=== PATIENT | female | born 1950 | race Caucasian/White ===

== ENCOUNTER → 2017-08-24 13:28 | Outpatient (CLI) | payer MEDICARE, OTHER, SELFPAY ==
--- NOTE | 2017-08-24 13:39 | XR_ITS ---
XR DEXA axial skeleton HISTORY: ITS.REASON: POST MENOPAUSAL ORDERING PHYSICIAN: Manny Bauer MD PATIENT AGE: 66 years COMPARISON: None FINDINGS: The BMD measured at the Right femoral neck is 0.738 g/cm squared with a T score of -2.2 . This is considered Osteopenic according to the World Health Organization criteria. Fracture risk is Moderate. Treatment is advised. The L1-L4 density has a T score of -2.0 consistent with osteopenia. IMPRESSION: Osteopenia. Moderate fracture risk. Recommend treatment. Recommend follow-up exam August 2019
--- NOTE | 2017-08-24 13:52 | XR_ITS ---
XR hip RT 2-3V w/pelvis HISTORY: ITS.REASON: KAYCE HIP PAIN ORDERING PHYSICIAN: Manny Bauer MD PATIENT AGE: 66 years COMPARISON: None FINDINGS: No fracture or dislocation is evident. No significant degenerative change. No lytic or blastic change. Unremarkable soft tissues IMPRESSION: Negative right hip
--- NOTE | 2017-08-24 13:52 | XR_ITS ---
XR hip LT 2-3V w/pelvis HISTORY: ITS.REASON: KAYCE HIP PAIN ORDERING PHYSICIAN: Manny Bauer MD PATIENT AGE: 66 years COMPARISON: None FINDINGS: No fracture or dislocation is evident. No significant degenerative change. No lytic or blastic change. Unremarkable soft tissues IMPRESSION: Negative left hip
== END ==
PROVIDERS: Family Provider Internal Medicine Adolescent Medicine; PCP Internal Medicine Adolescent Medicine; Visit Provider Internal Medicine Adolescent Medicine
DX: Z13.820 Encounter for screening for osteoporosis (principal); Z78.0 Asymptomatic menopausal state
CPT/HCPCS: 73502; 77080

== ENCOUNTER → 2018-11-16 15:26 | Outpatient (CLI) | payer MEDICARE, OTHER, SELFPAY | PROVIDERS: PCP Internal Medicine Adolescent Medicine; Visit Provider Nurse Practitioner Family | DX: R00.2 Palpitations (principal) | CPT/HCPCS: 93225; 93226 ==

== ENCOUNTER → 2018-12-14 07:47 | Outpatient (CLI) | payer MEDICARE, OTHER, SELFPAY ==
--- NOTE | 2018-12-14 08:20 | MR_ITS ---
MR angio head wo con CLINICAL INDICATION: ITS.REASON: PULSATILE TINNITUS OF LEFT EAR, BALANCE PROBLEM ORDERING PHYSICIAN: Melinda Melo APRN PATIENT AGE: 68 years Comparison: None TECHNIQUE: 3-D [id number] images obtained without contrast with multi slab MIPS reformats FINDINGS: No aneurysm, arteriovenous malformation, or major intracranial occlusive process is evident. Single shot MRV has an unremarkable appearance. IMPRESSION: Negative MRA of the brain
--- NOTE | 2018-12-14 08:20 | MR_ITS ---
MR head/brain wo/w con HISTORY: Pulsation and left inferior, off balance, headache, hearing loss ITS.REASON: PULSATILE TINNITUS OF LEFT EAR, BALANCE PROBLEM ORDERING PHYSICIAN: Melinda Melo APRN PATIENT AGE: 68 years Comparison: None TECHNIQUE: Standard multiplanar multiecho sequences are performed without and with gadolinium enhancement . FINDINGS: No midline shift, mass effect, intracranial hemorrhage, or hydrocephalus is evident. There is a small focus of increased diffusion signal noted in the right anterior occipital region involving the cortex. This measures approximately 4 mm showing decrease ADC signal consistent with a small area of cortical infarction. The cerebellopontine angles, cerebellum, midbrain, and brainstem have an unremarkable appearance. There are a few scattered is T2 white matter hyperintensities noted in the periventricular and subcortical regions consistent with ischemic gliotic change from microvascular disease. No enhancing lesions are apparent. No mastoid effusion or sinus air-fluid level. There is a small retention cyst in the lateral aspect of the left maxillary sinus at 9 mm and an additional 1 medially at 6 mm. IMPRESSION: 1. 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 2. Mild periventricular ischemic gliotic change. 3. Otherwise negative MRI of the brain without and with contrast
[2018-12-14 08:21] LABS: Blood Urea Nitrogen 12 mg/dL (7-18); Creatinine,Serum 0.63 mg/dL (0.55-1.02); Estimated Glomerular Filt Rate 93 ml/min (>60); GFR (African American) 113 ML/MIN (>60)
--- NOTE | 2018-12-14 09:17 | HMH.ITSHM ---
Current Home Medications as stated by this patient Summer Dow or union representative. [PAXIL ASA AMOXICILLIN
== END ==
PROVIDERS: Visit Provider Nurse Practitioner Family
DX: H93.A2 Pulsatile tinnitus, left ear (principal); R26.89 Other abnormalities of gait and mobility; R51 Headache; R00.2 Palpitations
CPT/HCPCS: 36415; 70544; 70553; 82565; 84520; A9576

== ENCOUNTER → 2019-01-22 10:08 | Outpatient (CLI) | payer MEDICARE, OTHER, SELFPAY ==
--- NOTE | 2019-01-22 10:11 | CA_ITS ---
[facility] RADIOLOGICAL CONSULTATION Patient Name : Summer Dow X-RAY # : [id number] Physician: SHEREEN MCCOY AGE: 68Y : 1950 00:00:00 ( F ) Exam : CA ECHO DOPPLER COMPLETE ACC # : [id number] Study Date : 01/22/2019 11:10:56 Patient Class : O FINAL REPORT CLINICAL DATA: FINDINGS: IMPRESSION: Dictated by Ritika Coburn at 01/24/2019 12:42:32 PM Transcribed by at
--- NOTE | 2019-01-22 10:33 | CA_ITS ---
APPROVED REPORT Laborer [place]: JILLIAN Laterality: Bilateral Study Quality: Good Indications: Dizziness and Vertigo, CVA/TIA: Risk Factors Hypertension: Doppler Spectral Velocity Analysis ECA (R) 89.90/11.90 cm/s ECA (L) 96.90/14.00 cm/s dICA (R) 100.00/31.10 cm/s dICA (L) 96.90/35.40 cm/s Leida (R) 92.30/33.60 cm/s Leida (L) 78.20/28.70 cm/s pICA (R) 73.10/29.90 cm/s pICA (L) 78.20/22.70 cm/s dCCA (R) 81.70/23.60 cm/s dCCA (L) 71.80/21.50 cm/s pCCA (R) 84.90/21.20 cm/s pCCA (L) 90.50/15.80 cm/s Vert (R) 35.10/8.48 cm/s Vert (L) 52.10/14.70 cm/s ICA/CCA 1.22 ICA/CCA 1.35 Findings Duplex evaluation demonstrates stenosis of the right proximal internal carotid artery <20% with PSV <140 cm/sec, EDV <100 cm/sec, and IC/CC Ratio <4.0.Duplex evaluation demonstrates stenosis of the left proximal internal carotid artery <20% with PSV <140 cm/sec, EDV <100 cm/sec, and IC/CC Ratio <4.0. Antegrade flow seen bilateral vertebral arteries. Conclusion Duplex evaluation demonstrates stenosis of the right proximal internal carotid artery <20% with PSV <140 cm/sec, EDV <100 cm/sec, and IC/CC Ratio <4.0.Duplex evaluation demonstrates stenosis of the left proximal internal carotid artery <20% with PSV <140 cm/sec, EDV <100 cm/sec, and IC/CC Ratio <4.0. Antegrade flow seen bilateral vertebral arteries. Electronically signed by : Sourav Garcia MD 01/23/2019 09:35:14
== END ==
PROVIDERS: PCP Internal Medicine Adolescent Medicine; Visit Provider Internal Medicine Adolescent Medicine
DX: I63.89 Other cerebral infarction
CPT/HCPCS: 93306; 93880

== ENCOUNTER → 2019-01-26 10:53 | Outpatient (CLI) | payer MEDICARE, OTHER, SELFPAY | PROVIDERS: PCP Internal Medicine Adolescent Medicine; Visit Provider Internal Medicine Adolescent Medicine | DX: R00.2 Palpitations (principal); I63.9 Cerebral infarction, unspecified | CPT/HCPCS: 93270 ==

== ENCOUNTER → 2019-04-10 18:43 | Outpatient (CLI) | payer MEDICARE, OTHER, SELFPAY | PROVIDERS: PCP Internal Medicine Adolescent Medicine; Visit Provider Internal Medicine Adolescent Medicine | DX: G47.33 Obstructive sleep apnea (adult) (pediatric) (principal); I10 Essential (primary) hypertension | CPT/HCPCS: 95810 ==

== ENCOUNTER → 2019-04-18 07:05 | Outpatient (CLI) | payer MEDICARE, OTHER, SELFPAY ==
[2019-04-18 14:19] LABS: Basophils % 0.4 % (0.1-2.0); Eosinophils # 0.2 K/mm3 (0.0-0.4); Eosinophils % 3.2 % (0.1-12.0); Hematocrit 35.6 % (37.0-47.0); Hemoglobin 11.9 g/dL (12.2-16.2); Lymphocytes # 1.6 K/mm3 (0.7-4.5); Lymphocytes % 25.2 % (10-50); Mean Corpuscular HGB Conc 33.3 g/dL (31.8-35.4); Mean Corpuscular Hemoglobin 30.6 pg (27.0-31.2); Mean Corpuscular Volume 91.9 fl (81-99); Mean Platelet Volume 9.1 fl (7.4-10.4); Monocytes # 0.3 K/mm3 (0.1-1.0); Monocytes % 4.1 % (1.7-9.3); Neutrophils # 4.3 K/mm3 (1.8-7.8); Neutrophils % 67.2 % (37.0-80.0); Platelet Count 206 K/mm3 (142-424); Red Blood Count 3.88 M/mm3 (4.20-5.40); Red Cell Distribution Width 12.8 % (11.5-17.5); White Blood Count 6.4 K/mm3 (4.8-10.8)
[2019-04-18 15:17] LABS: Alanine Aminotransferase 14 U/L (12-78); Albumin Level 3.8 gm/dL (3.4-5.0); Albumin/Globulin Ratio 1.2 (1.1-1.8); Alkaline Phosphatase 110 U/L (46-116); Anion Gap 12.5 mEq/L (5-15); Aspartate Amino Transferase 13 U/L (15-37); Bilirubin,Total 0.3 mg/dL (0.2-1.0); Blood Urea Nitrogen 14 mg/dL (7-18); Calcium 8.6 mg/dL (8.5-10.1); Carbon Dioxide 30 mmol/L (21.0-32.0); Chloride 104 mmol/L (98-107); Chol/HDL Ratio 2.3 (1-3.5); Cholesterol 164 mg/dL (140-200); Creatinine,Serum 0.59 mg/dL (0.55-1.02); Estimated Glomerular Filt Rate 101 ml/min (>60); GFR (African American) 122 ML/MIN (>60); Globulin 3.1 gm/dl (1.3-3.2); Glucose 103 mg/dL (74-106); HDL Cholesterol 72 mg/dL (29-89); LDL Cholesterol 83 mg/dL (0-130); Potassium 3.5 mmoL/L (3.5-5.1); Sodium 143 mmol/L (136-145); Thyroid Stimulating Hormone 2.07 uIU/ml (0.358-3.740); Total Protein,Serum 6.9 gm/dL (6.4-8.2); Triglycerides 44 mg/dL (30-200); VLDL Cholesterol 9 mg/dL (0-40)
[2019-04-18 15:46] LABS: Hemoglobin A1C 5.9 % (0.0-7.0)
[2019-04-19 13:21] LABS: Vitamin B12 550 pg/mL (232-1245)
== END ==
PROVIDERS: PCP Internal Medicine Adolescent Medicine; Visit Provider Internal Medicine Adolescent Medicine
DX: E11.9 Type 2 diabetes mellitus without complications (principal); E53.8 Deficiency of other specified B group vitamins; I48.0 Paroxysmal atrial fibrillation
CPT/HCPCS: 36415; 80053; 80061; 82607; 83036; 84443; 85025

== ENCOUNTER → 2019-07-18 09:57 | Outpatient (CLI) | payer MEDICARE, OTHER, SELFPAY ==
[2019-07-18 14:16] LABS: Basophils % 0.6 % (0.1-2.0); Eosinophils # 0.1 K/mm3 (0.0-0.4); Hematocrit 35.6 % (37.0-47.0); Hemoglobin 12.1 g/dL (12.2-16.2); Lymphocytes # 1.5 K/mm3 (0.7-4.5); Lymphocytes % 26.5 % (10-50); Mean Corpuscular HGB Conc 33.9 g/dL (31.8-35.4); Mean Corpuscular Hemoglobin 30.1 pg (27.0-31.2); Mean Corpuscular Volume 88.7 fl (81-99); Mean Platelet Volume 8.6 fl (7.4-10.4); Monocytes # 0.3 K/mm3 (0.1-1.0); Monocytes % 4.8 % (1.7-9.3); Neutrophils # 3.8 K/mm3 (1.8-7.8); Neutrophils % 66.1 % (37.0-80.0); Platelet Count 220 K/mm3 (142-424); Red Blood Count 4.01 M/mm3 (4.20-5.40); Red Cell Distribution Width 12.6 % (11.5-17.5); White Blood Count 5.8 K/mm3 (4.8-10.8)
[2019-07-18 14:21] LABS: Hemoglobin A1C 5.6 % (0.0-7.0)
[2019-07-18 15:09] LABS: Alanine Aminotransferase 21 U/L (9-52); Albumin Level 3.8 g/dL (3.4-5.0); Albumin/Globulin Ratio 1.3 (1.1-1.8); Alkaline Phosphatase 113 U/L (46-116); Anion Gap 11.8 mEq/L (5-15); Aspartate Amino Transferase 12 U/L (15-37); Bilirubin,Total 0.3 mg/dL (0.2-1.0); Blood Urea Nitrogen 11 mg/dL (7-18); Calcium 8.8 mg/dL (8.5-10.1); Carbon Dioxide 30 mmol/L (21.0-32.0); Chloride 109 mmol/L (98-107); Chol/HDL Ratio 2.4 (1-3.5); Cholesterol 143 mg/dL (140-200); Creatinine,Serum 0.62 mg/dL (0.55-1.02); Estimated Glomerular Filt Rate 95 ml/min (>60); GFR (African American) 115 ML/MIN (>60); Globulin 2.9 gm/dl (1.3-3.2); Glucose 95 mg/dL (74-106); HDL Cholesterol 59 mg/dL (29-89); LDL Cholesterol 75 mg/dL (0-130); Potassium 3.8 mmoL/L (3.5-5.1); Sodium 147 mmol/L (137-145); Total Protein,Serum 6.7 g/dL (6.4-8.2); Triglycerides 44 mg/dL (30-200); VLDL Cholesterol 9 mg/dL (0-40)
[2019-07-19 10:30] LABS: Vitamin B12 461 pg/mL (232-1245)
== END ==
PROVIDERS: Visit Provider Internal Medicine Adolescent Medicine
DX: E11.9 Type 2 diabetes mellitus without complications (principal); E53.8 Deficiency of other specified B group vitamins
CPT/HCPCS: 36415; 80053; 80061; 82607; 83036; 85025

== ENCOUNTER → 2020-01-16 08:35 | Outpatient (CLI) | payer MEDICARE, OTHER, SELFPAY ==
[2020-01-16 14:27] LABS: Chloride 104 mmol/L (98-107); Sodium 142 mmol/L (136-145)
[2020-01-16 14:30] LABS: Alanine Aminotransferase 12 U/L (12-78); Albumin Level 4.3 g/dl (3.5-5.0); Albumin/Globulin Ratio 1.6 (1.1-1.8); Alkaline Phosphatase 122 U/L (38-126); Aspartate Amino Transferase 18 U/L (14-36); Bilirubin,Total 0.5 mg/dl (0.2-1.3); Blood Urea Nitrogen 14 mg/dl (7-17); Carbon Dioxide 31 mmol/L (22.0-30.0); Cholesterol 171 mg/dl (140-200); Estimated Glomerular Filt Rate 122 ml/min (>60); GFR (African American) 147 ML/MIN (>60); Globulin 2.7 g/dL (1.3-3.2); Triglycerides 63 mg/dl (30-150); VLDL Cholesterol 13 mg/dL (0-40)
[2020-01-16 14:31] LABS: Calcium 9.5 mg/dl (8.4-10.2); Chol/HDL Ratio 2.4 (1-3.5); Glucose 94 mg/dl (74-100); HDL Cholesterol 71 mg/dl (40-60)
[2020-01-16 14:38] LABS: Basophils % 0.5 % (0.1-2.0); Eosinophils # 0.1 K/mm3 (0.0-0.4); Eosinophils % 2.1 % (0.1-12.0); Hematocrit 35.1 % (37.0-47.0); Hemoglobin 12.3 g/dL (12.2-16.2); Lymphocytes # 1.8 K/mm3 (0.7-4.5); Lymphocytes % 25.4 % (10-50); Mean Corpuscular Hemoglobin 31.2 pg (27.0-31.2); Mean Corpuscular Volume 89.2 fl (81-99); Mean Platelet Volume 9.6 fl (7.4-10.4); Monocytes # 0.3 K/mm3 (0.1-1.0); Monocytes % 4.9 % (1.7-9.3); Neutrophils # 4.7 K/mm3 (1.8-7.8); Neutrophils % 67.1 % (37.0-80.0); Platelet Count 198 K/mm3 (142-424); Red Blood Count 3.94 M/mm3 (4.20-5.40); Red Cell Distribution Width 13.1 % (11.5-17.5); White Blood Count 6.9 K/mm3 (4.8-10.8)
[2020-01-16 14:42] LABS: Direct LDL Cholesterol 76.65 mg/dL (100-129)
[2020-01-16 14:48] LABS: Triiodothryronine (T3) Uptake 30 % (23.5-40.5)
[2020-01-16 14:49] LABS: Free Thyroxine Index 2.5 ug/dL (5.93-13.13); T4 (Thyroxine) 8.3 ug/dl (5.53-11.0)
[2020-01-16 15:03] LABS: Thyroid Stimulating Hormone 1.15 uIU/mL (0.465-4.68)
[2020-01-18 14:15] LABS: Vitamin B12 426 pg/mL (232-1245)
== END ==
PROVIDERS: Visit Provider Internal Medicine Adolescent Medicine
DX: E11.9 Type 2 diabetes mellitus without complications (principal); I48.0 Paroxysmal atrial fibrillation; Z86.39 Personal history of other endocrine, nutritional and metabolic disease
CPT/HCPCS: 36415; 80053; 80061; 82607; 83036; 84436; 84443; 84479; 85025

== ENCOUNTER → 2020-01-21 08:27 | Outpatient (CLI) | payer MEDICARE, OTHER, SELFPAY ==
--- NOTE | 2020-01-21 08:32 | MR_ITS ---
PROCEDURE: MR HEAD/BRAIN WO CON CLINICAL INDICATION: OCCIPITAL HEADACHE Off balance. Sob. Hx of stroke x1yr. Not feeling good [id number]. Weakness. Headache. Hx a fib. Prior mr 12-14-18 TECHNIQUE: Routine multiplanar multi echo sequences are performed without gadolinium enhancement. FINDINGS: No midline shift, mass effect, intracranial hemorrhage, hydrocephalus, or acute infarction is evident. There are scattered periventricular and subcortical T2 white matter hyperintensities consistent with ischemic gliotic change from microvascular disease incidentally noted. These areas do not demonstrate restricted diffusion. The cerebellopontine angles, cerebellum, and brainstem have an unremarkable appearance. The pituitary, optic chiasm, corpus callosum, and craniocervical junction have an unremarkable appearance. No mastoid effusion or sinus air-fluid level. IMPRESSION: No acute intracranial findings with no significant change Dictated by: Sourav Garcia MD 01/22/2020 12:38 Sourav Garcia MD in [place] 01/22/2020 12:38
== END ==
PROVIDERS: PCP Internal Medicine Adolescent Medicine; Visit Provider Internal Medicine Adolescent Medicine
DX: I63.9 Cerebral infarction, unspecified (principal)
CPT/HCPCS: 70551

== ENCOUNTER → 2020-06-18 08:53 | Outpatient (CLI) | payer MEDICARE, OTHER, SELFPAY ==
[2020-06-18 14:32] LABS: Basophils % 0.6 % (0.1-2.0); Eosinophils # 0.2 K/mm3 (0.0-0.4); Eosinophils % 2.1 % (0.1-12.0); Hemoglobin 13.2 g/dL (12.2-16.2); Lymphocytes # 1.8 K/mm3 (0.7-4.5); Lymphocytes % 25.1 % (10-50); Mean Corpuscular HGB Conc 33.9 g/dL (31.8-35.4); Mean Corpuscular Hemoglobin 30.6 pg (27.0-31.2); Mean Corpuscular Volume 90.2 fl (81-99); Mean Platelet Volume 8.6 fl (7.4-10.4); Monocytes # 0.4 K/mm3 (0.1-1.0); Monocytes % 5.1 % (1.7-9.3); Neutrophils # 4.7 K/mm3 (1.8-7.8); Neutrophils % 67.2 % (37.0-80.0); Platelet Count 225 K/mm3 (142-424); Red Blood Count 4.32 M/mm3 (4.20-5.40); Red Cell Distribution Width 13.3 % (11.5-17.5)
[2020-06-18 14:33] LABS: Alanine Aminotransferase 28 U/L (12-78); Albumin Level 4.4 g/dl (3.5-5.0); Albumin/Globulin Ratio 1.5 (1.1-1.8); Alkaline Phosphatase 125 U/L (38-126); Anion Gap 12.9 mEq/L (5-15); Aspartate Amino Transferase 31 U/L (14-36); Bilirubin,Total 0.6 mg/dl (0.2-1.3); Blood Urea Nitrogen 14 mg/dl (7-17); Calcium 9.7 mg/dl (8.4-10.2); Carbon Dioxide 31 mmol/L (22.0-30.0); Chloride 102 mmol/L (98-107); Chol/HDL Ratio 2.3 (1-3.5); Cholesterol 176 mg/dl (140-200); Estimated Glomerular Filt Rate 99 ml/min (>60); GFR (African American) 119 ML/MIN (>60); Glucose 106 mg/dl (74-100); HDL Cholesterol 77 mg/dl (40-60); Potassium 3.9 mmoL/L (3.5-5.1); Sodium 142 mmol/L (136-145); Total Protein,Serum 7.4 g/dl (6.3-8.2); Triglycerides 67 mg/dl (30-150); VLDL Cholesterol 13 mg/dL (0-40)
[2020-06-18 14:45] LABS: Direct LDL Cholesterol 71.28 mg/dL (100-129)
[2020-06-18 14:50] LABS: 25-OH Vitamin D, Total 17.9 ng/mL (30-100)
[2020-06-18 14:51] LABS: Free Thyroxine Index 2.7 ug/dL (5.93-13.13); T4 (Thyroxine) 8.5 ug/dl (5.53-11.0); Triiodothryronine (T3) Uptake 32 % (23.5-40.5)
[2020-06-18 15:05] LABS: Thyroid Stimulating Hormone 1.69 uIU/mL (0.465-4.68)
[2020-06-18 15:14] LABS: Hemoglobin A1C 5.8 % (4.0-6.0)
[2020-06-18 15:22] LABS: Vitamin B12 434 pg/mL (239-931)
== END ==
PROVIDERS: Visit Provider Internal Medicine Adolescent Medicine
DX: E11.9 Type 2 diabetes mellitus without complications (principal); G60.9 Hereditary and idiopathic neuropathy, unspecified; I48.0 Paroxysmal atrial fibrillation; E53.8 Deficiency of other specified B group vitamins; M85.80 Other specified disorders of bone density and structure, unspecified site
CPT/HCPCS: 36415; 80053; 80061; 82306; 82607; 83036; 84436; 84443; 84479; 85025

== ENCOUNTER → 2021-01-13 07:52 | Outpatient (CLI) | payer MEDICARE, OTHER, SELFPAY ==
--- NOTE | 2021-01-13 13:28 | CA_ITS ---
APPROVED REPORT EXAM: Comprehensive 2D, Doppler, and color-flow Echocardiogram Animal Cop: Mary Vee RVT Ht: 5 ft 2 in Wt: 123lbs BSA: 1.55 BP: 145/61 mmHg Indications: A-FIB,DM,GERD 2D Dimensions LVOT 2.05 cm (M/F) 1.5-2.5 LA Volume 25.80 mL LA Volume Index 16.64 mL/m2 (M/F) 16-34 M-Mode Dimensions RVDd 2.85 cm (0.9-2.6) LA Diam 3.58 cm (1.9-4.0) LVDd 3.55 cm (3.5-5.7) Ao Diam 2.56 cm (2.0-3.7) LVDs 2.45 cm (3.5-5.7) IVSd 0.91 cm (0.6-1.1) PWd 0.84 cm (0.6-1.1) EF (Teich) 59.70% FS 31.00% EDV (Teich) 52.60 mL TAPSE 1.98 (<1.7) ESV (Teich) 21.20 mL LV Diastology E Decel Time 223.00 (160-240 msec) E/A Ratio 1.2 MED E' 8.40 (< 7 cm/sec) E'/MED E' Ratio 10.07 (>14) LAT E' 7.70 (<10 cm/sec) E/LAT E' Ratio 10.99 (>14) Aortic Valve AO Peak GR. 3.60 mmHg Mitral Valve MV E Max Derrek. 85.00 (40-130 cm/s) MV A Velocity 69.00 (40-130 cm/s) E/A Ratio 1.23 MV Decel. Time 223.00 (160-240 ms) MV PHT 65.00 ms Pulmonary Valve PV Peak Velocity 82.00 (50-150 cm/s) Tricuspid Valve TR P. Velocity 224.00 cm/s RAP Estimate 10.00 mmHg RVSP 30.10 mmHg Left Ventricle Left atrium is mildly enlarged, left ventricle is normal size, mild concentric left ventricular hypertrophy, visually estimated ejection fraction 55% with no regional wall motion abnormality, diastolic parameters are inconclusive. Right Ventricle Right atrium and right ventricle are normal size and contractility. Aortic Valve Aortic valve is minimally thickened and fibrosed, there is no aortic stenosis or aortic insufficiency. Mitral Valve Mitral valve grossly normal, there is mild mitral regurgitation. Tricuspid Valve Tricuspid valve grossly normal, there is mild tricuspid regurgitation, calculated right ventricular systolic pressure 30 mmHg. Pulmonic Valve Pulmonic valve is poorly visualized. Great Vessels Aortic root is normal size. Inferior vena cava is normal size with normal inspiratory collapse. Pericardium No significant pericardial effusion noted. Conclusion 1. Mildly enlarged left atrium, normal left ventricular size, mild concentric left ventricular hypertrophy, visually estimated ejection fraction 55% with no regional wall motion abnormality, diastolic parameters of inconclusive. 2. Mild mitral and tricuspid regurgitation, calculated right ventricular systolic pressure 30 mmHg. 3. No significant pericardial effusion noted, inferior vena cava is normal size with normal inspiratory collapse. Electronically signed by : Khai Sneed MD 01/13/2021 19:26:13
[2021-01-13 13:56] LABS: Basophils % 0.5 % (0.1-2.0); Eosinophils # 0.2 K/mm3 (0.0-0.4); Eosinophils % 3.3 % (0.1-12.0); Hematocrit 35.6 % (37.0-47.0); Hemoglobin 12.1 g/dL (12.2-16.2); Lymphocytes # 1.9 K/mm3 (0.7-4.5); Lymphocytes % 28.5 % (10-50); Mean Corpuscular HGB Conc 33.9 g/dL (31.8-35.4); Mean Corpuscular Hemoglobin 29.7 pg (27.0-31.2); Mean Corpuscular Volume 87.6 fl (81-99); Monocytes # 0.3 K/mm3 (0.1-1.0); Neutrophils # 4.2 K/mm3 (1.8-7.8); Neutrophils % 62.8 % (37.0-80.0); Platelet Count 196 K/mm3 (142-424); Red Blood Count 4.07 M/mm3 (4.20-5.40); Red Cell Distribution Width 13.6 % (11.5-17.5); White Blood Count 6.8 K/mm3 (4.8-10.8)
[2021-01-13 14:06] LABS: Alanine Aminotransferase 18 U/L (12-78); Albumin Level 4.4 g/dl (3.5-5.0); Albumin/Globulin Ratio 1.7 (1.1-1.8); Alkaline Phosphatase 120 U/L (38-126); Anion Gap 13.2 mEq/L (5-15); Aspartate Amino Transferase 24 U/L (14-36); Bilirubin,Total 0.6 mg/dl (0.2-1.3); Blood Urea Nitrogen 12 mg/dl (7-17); Calcium 9.1 mg/dl (8.4-10.2); Carbon Dioxide 29 mmol/L (22.0-30.0); Chloride 103 mmol/L (98-107); Chol/HDL Ratio 2.3 (1-3.5); Cholesterol 158 mg/dl (140-200); Estimated Glomerular Filt Rate 98 ml/min (>60); GFR (African American) 119 ML/MIN (>60); Globulin 2.6 g/dL (1.3-3.2); Glucose 102 mg/dl (74-100); HDL Cholesterol 69 mg/dl (40-60); Potassium 4.2 mmoL/L (3.5-5.1); Sodium 141 mmol/L (136-145); Triglycerides 74 mg/dl (30-150); VLDL Cholesterol 15 mg/dL (0-40)
[2021-01-13 14:19] LABS: Direct LDL Cholesterol 59.96 mg/dL (100-129)
[2021-01-13 14:22] LABS: Free Thyroxine Index 2.5 ug/dL (5.93-13.13); T4 (Thyroxine) 8.3 ug/dl (5.53-11.0); Triiodothryronine (T3) Uptake 30 % (23.5-40.5)
[2021-01-13 14:26] LABS: 25-OH Vitamin D, Total 21.4 ng/mL (30-100)
[2021-01-13 14:36] LABS: Thyroid Stimulating Hormone 1.66 uIU/mL (0.465-4.68)
[2021-01-13 14:55] LABS: Vitamin B12 505 pg/mL (239-931)
== END ==
PROVIDERS: PCP Internal Medicine Adolescent Medicine; Visit Provider Internal Medicine Adolescent Medicine
DX: R06.09 Other forms of dyspnea (principal); I48.0 Paroxysmal atrial fibrillation; E11.9 Type 2 diabetes mellitus without complications; E55.9 Vitamin D deficiency, unspecified; R53.81 Other malaise; R53.83 Other fatigue
CPT/HCPCS: 36415; 80053; 80061; 82306; 82607; 83036; 84436; 84443; 84479; 85025; 93306

== ENCOUNTER → 2021-03-25 11:37 | Outpatient (CLI) | payer MEDICARE, OTHER, SELFPAY ==
--- NOTE | 2021-03-25 | CA_ITS ---
APPROVED REPORT Exam: Pharmacologic Technologist: Salud Ovalle, Ht: 5 ft 2 in Wt: 128 lbs BSA: 1.58 m2 HR: 59 bpm BP: 134/68 mmHg Rhythm: SINUS MARCELL, OTHERWISE NORMAL Medical History Medications: XaRELTO,,,,, PaXIL,,,,, DilTiazem,,,,, Allergies: CODEINE Stress Test Details Test: LEXISCAN HR Resting HR: 60 bpm Max Heart Rate (APMHR): 148.427449 bpm Max HR Achieved: 86 bpm Target HR (85% APMHR): 125.003492 bpm % of APMHR: 58.11 Recovery HR: 66 bpm BP Resting BP: 134/68 mmHg Max BP: 134/68 mmHg Recovery BP: 145.0/68.0 mmHg ECG Resting ECG: SINUS MARCELL, OTHERWISE NORMAL Clinical Exercise duration: 04:02 min Highest Stage Achieved: Exercise capacity: 1.0 METs Stress ECG Conclusion MILD CHEST PRESSURE, MALAISE, PUENTE. RARE PVC. NO SIGNIFICANT ST-T CHANGES. UNREMARKABLE LEXISCAN STRESS. MYOVIEW IMAGES REPORTED SEPARATELY. Electronically signed by : Khai Sneed MD 03/26/2021 13:20:11
--- NOTE | 2021-03-25 11:40 | NM_ITS ---
APPROVED REPORT Exam: Nuclear Stress Test Indication: Chest pain, SOB, Fatigue, DM Patient Location: Outpatient Stress Tech: Salud Ovalle NM Tech:Roseann Crowe, ARRT, RT (R)(N) Ht: 5 ft 2 in Wt: 128 lbs Bra Size: 36B HR: 59 bpm BP: 134/68 mmHg BSA: 1.58 m2 BMI: 23.4 History: Chest pain, SOB, Fatigue, DM Procedure: Patient received a 0.4 mg of intravenous Lexiscan, resting heart rate 59 bpm, resting blood pressure 134/68 mmHg, with Lexiscan maximum heart rate achived was 77 bpm which is Less than 85 % of the maximum predicted heart rate and blood pressure was 124/67 mmHg. Electrocardiogram Resting electrocardiogram shows sinus rhythm, with Lexiscan there is less than 1.[address] segment depression noted from the baseline EKG. The EKG portion of the Lexiscan is nondiagnostic. Cardiac Stress and Resting SPECT Images: Cardiac Stress and Resting SPECT images were obtained using technetium 99m Myoview 29.5 mCi stress and 10.29 mCi at rest. Gated SPECT for analysis of segmental wall motion and calculation of the ejection fraction also done. Cardiac stress and resting SPECT images show mild reversible defect involving the anterior apical wall, computer derived ejection fraction is 63% with no regional wall motion abnormality, right ventricle is normal size and contractility. Conclusion: 1. The EKG portion of the Lexiscan is nondiagnostic. 2. Scintigraphic evidence of mild reversible ischemia involving the anterior apical wall, computer derived ejection fraction is 63% with no regional wall motion abnormality, right ventricle is normal size and contractility. 3. Abnormal Lexiscan Myoview study. Electronically signed by : Khai Sneed MD 03/26/2021 13:25:18
--- NOTE | 2021-03-25 13:26 | HMH.ITSHM ---
Current Home Medications as stated by this patient Summer Dow or member services representative. []MISOPROSTOL CALCIUM PAROXETINE MELOXICAM ASA
== END ==
PROVIDERS: PCP Internal Medicine Adolescent Medicine; Visit Provider Internal Medicine Adolescent Medicine
DX: R07.9 Chest pain, unspecified (principal)
CPT/HCPCS: 78452; 93017; A9502; J2785

== ENCOUNTER → 2021-04-09 06:35 | Outpatient (CLI) | payer MEDICARE, OTHER, SELFPAY ==
--- NOTE | 2021-04-09 06:43 | CT_ITS ---
PROCEDURE: CT CHEST WO CON CLINICAL INDICATION: DYSPNEA ON EXERTION COMPARISON: No exams were available for comparison TECHNIQUE: Axial images obtained with sagittal and coronal reformats. All CT scans at the facility use one or more dose reduction, viz: automated exposure control, ma/kV adjustment per patient size (including targeted exams where dose is matched to indication, i.e. head), or iterative reconstruction technique. FINDINGS: HEART AND MEDIASTINAL STRUCTURES: Unremarkable. LUNGS AND PLEURAL SPACES: Lungs are clear aside from a small calcified granuloma in the right upper lobe. There are few small calcified nodes in the mediastinum and right hilum. No effusions or infiltrates. No suspicious pulmonary nodules. Minimal scarring versus atelectatic change in the lower lobe laterally and left lung base medially and posteriorly. BONY STRUCTURES: No acute bony abnormalities apparent. UPPER ABDOMEN: Unremarkable. ADDITIONAL FINDINGS: Postsurgical changes right breast IMPRESSION: No acute finding. Old granulomatous disease Dictated by: Sourav Garcia MD 04/09/2021 07:11 Sourav Garcia MD in [place] 04/09/2021 07:11
== END ==
PROVIDERS: PCP Internal Medicine Adolescent Medicine; Visit Provider Internal Medicine Adolescent Medicine
DX: R06.09 Other forms of dyspnea (principal)
CPT/HCPCS: 71250; 94060; 94618; 94726; 94729

== ENCOUNTER → 2022-06-11 07:51 | Outpatient (CLI) | payer MEDICARE, OTHER, SELFPAY ==
--- NOTE | 2022-06-11 07:54 | US_ITS ---
FINAL REPORT TECHNIQUE: Multiple transverse and longitudinal images CLINICAL HISTORY: RUQ PAIN FINDINGS: The gallbladder shows no wall thickening, distention or stone disease. No biliary ductal dilatation is appreciated. No fluid collections are seen. Limited portions of the right liver are unremarkable. Limited portions of the right kidney are unremarkable. IMPRESSION: 1. No evidence of cholelithiasis 2. No evidence of biliary obstruction Reviewed, Interpreted and Dictated by Zeina Mata MD Transcribed by Priyanka Hernandez Authenticated and [facility]
== END ==
PROVIDERS: PCP Internal Medicine Adolescent Medicine; Visit Provider Internal Medicine Adolescent Medicine
DX: R10.11 Right upper quadrant pain (principal)
CPT/HCPCS: 76705

== ENCOUNTER → 2022-08-04 09:51 | Outpatient (CLI) | payer MEDICARE, OTHER, SELFPAY ==
--- NOTE | 2022-08-04 10:01 | NM_ITS ---
FINAL REPORT CLINICAL HISTORY: RUQ PAIN,WEIGHT LOSS 10:20am 8.35 mci tc choletec 1.2 mcg cck no pain COMPARISON: None FINDINGS: Sequential anterior projection images of the abdomen were obtained after the intravenous injection of 8.35 mCi technetium 99m Choletec. There is normal uptake of radiotracer by the liver. The bile ducts are visualized by 20 minutes. Gallbladder activity is seen by 15 minutes. Bowel activity is normal. After 1 hour, 1.2 ?g of CCK was injected intravenously for calculation of gallbladder ejection fraction. The gallbladder ejection fraction is 71 %, which is within normal limits. IMPRESSION: No evidence of cystic duct or bile duct obstruction. Normal gallbladder ejection fraction of 71 %. Reviewed, Interpreted and Dictated by Adrienne Soria MD Transcribed by Sandra Cintron Authenticated and [facility]
== END ==
PROVIDERS: PCP Internal Medicine Adolescent Medicine; Visit Provider Internal Medicine Gastroenterology
DX: R10.11 Right upper quadrant pain (principal); R63.4 Abnormal weight loss
CPT/HCPCS: 78227; A9537; J2805

== ENCOUNTER → 2023-05-10 10:15 | Outpatient (CLI) | payer MEDICARE, OTHER, SELFPAY ==
[2023-05-16 22:27] LABS: Pancreatic Elastase, Fecal 116 (>200)
== END ==
PROVIDERS: PCP Internal Medicine Adolescent Medicine; Visit Provider Internal Medicine Gastroenterology
DX: R10.11 Right upper quadrant pain (principal); R10.9 Unspecified abdominal pain; K59.89 Other specified functional intestinal disorders; K59.00 Constipation, unspecified; R14.0 Abdominal distension (gaseous)
CPT/HCPCS: 82656

== ENCOUNTER 2025-01-15 11:11 | Outpatient (CLI) | payer MEDICARE, OTHER, SELFPAY ==
--- OUTSIDE RECORDS SUMMARY | 2024-12-04 06:30 | XMS_ITS ---
Author Organization [facility] Address [address] [place] [address] Care Team Providers Care Dramatic Agent Name Role Phone Manny Bauer Primary Care Provider REASON FOR VISIT med ck Encounters Encounter Location Date Provider Diagnosis [address] [address] 12/04/2024 Manny Bauer Plan Of Treatment No Information Progress Notes * Summer DOW MDOB:1950 ( 74 yo F)Acc No.[id number]:12/04/2024 Progress Notes Patient: Ana VAZQUEZ Summer Barrera Provider: Lola Bauer MD :1950 A ge:74 Y S ex:Female Date:12/04/2024 Address[place] [id number] Subjective: * Chief Complaints: * 1 . Med ck. * Medical History: Objective: * Vitals: Assessment: Plan: * Treatment: * * Electronic signature of Shiraz Bauer MD FAAP on 01/15/2025 at 11:16 AM EDT Sign off status: Pending * Provider: Lola Bauer MD Date: 12/04/2024 Generated for Printi ng/Faxing/eTransmitting on: 01/15/2025 11:16 AM EDT
--- OUTSIDE RECORDS SUMMARY | 2024-12-27 13:00 | XMS_ITS | Encounter Summary ---
Author Organization Healthcare Address [address] [place] [address] Care Team Providers Care Slurry Tank Tender Name Role Phone Manny Bauer MD Primary Care Provider [phone] Reason for Referral * Consultation (Routine) - Authorized Specialty Diagnoses / Procedures Referred By Roxanne khan Referred To Contact Dentistry Diagnoses Pain Greg Ku DDS [address] [facility] [address] [place] [address] Phone: tel: fax: [facility] [address] [place] [address] Phone: tel: fax: Referral ID Status Reason Start Date Expiration Date Visits Requested Visits Authorized [id number] Authorized Specialty Services Required 12/27/2024 06/28/2026 1 1 Encounter Details Date Type Department Care Team (Late st Contact Info) Description 12/27/2024 1:00 PM EDT Evaluation [facility] [address] [phone] Greg Ku DDS [address] [facility] [address] [place] [address] Pain (Primary Dx) Social History Tobacco Use Types Packs/Day Years Used Date Smoking Tobacco: Never Smokeless Tobacco: Never PHQ-2 Answer Date Recorded Patient Health Questionnaire-2 Score 0 2024 PHQ-9 Answer Date Recorded Patient Health Questionnaire-9 Score 0 2024 Comments No Sex and Gender Information Value Date Recorded Sex Assigned at Not on file Legal Sex Female 8:22 PM EDT Gender Identity Not on file Sexual Orientation Not on file documented as of this encounter Last Filed Vital Signs Vital Sign Reading Time Taken Comments Blood Pressure 135/71 12/27/2024 1:03 PM EDT Pulse 68 12/27/2024 1:03 PM EDT Temperature 37.2 C (98.9 F) 12/27/2024 1:03 PM EDT Respiratory Rate - - Oxygen Saturation 97% 12/27/2024 1:03 PM EDT Inhaled Oxygen Concentration - - Weight 56.1 kg (123 lb 10.9 oz) 12/27/2024 1:03 PM EDT Height 160 cm (5' 3 ) 12/27/2024 1:03 PM EDT Body Mass Index 21.91 12/27/2024 1:03 PM EDT documented in this encounter Miscellaneous Notes * Progress Notes - Joshua Ramirez, NOEL - 12/27/2024 1:00 PM EDT Images from the original note were not included. Oral & Maxillofacial Surgery Evaluation CC: I have a burning sensation by the gums of my front teeth HPI: Summer Dow is a 74 y.o. female with PMH significant for breast cancer, Afib, type 2 diabetes,stroke who presents for evaluation of pain associated with teeth #6 and 9. Patient reports pain of over 1 year duration, waxing and waning and burning in nature. Patient reports pain has been presentsince restorative work was completed on the aforementioned teeth, and she has been to multiple dentists for evaluation. Review of Systems: A 14-point review of systems was performed and is negative except as noted in HPI. PAST MEDICAL HISTORY: Past Medical History Pertinent Negatives[1] PAST SURGICAL HISTORY: Surgical History[2] Medications: Medications Ordered Prior to Encounter[3] Allergies: Allergies[4] Social History: Smoking: denies Alcohol: denies Illicit drugs: denies Family History: Family History[5] OBJECTIVE: Vitals: 12/27/24 1303 BP: 135/71 Pulse: 68 Temp: 37.2 ??C (98.9 ??F) SpO2: 97% Focused PE: Gen: NAD. Head/Face: NCAT, no facial swellings. Oral: SIDRA: 30 mm. Tongue FROM, FOM soft. Fair dentition. Fair OH. No lesions or ulcerations. Oral soft tissues appear normal. Periodontal probe around margins of prosthodontics work on teeth #6 and #9 revealed significant overhang with likely tissue impingement. Neck: Soft, supple. Trachea midline. No masses/goiter. No LAD. CV: well perfused Pulm: Non-labored breathing on room air Neuro: AA&Ox3 Radiographic Findings Film Ordered: Panoramic and CBCT Date Ordered: 09/23/2024 Radiographic Indication: pain of unclear origin, and suspicion for cyst of maxilla indicating a need for 3D imaging. Radiographic Interpretation/Findings: Condyles round & posterior to articular eminence bilaterally. Sinuses clear & symmetrical bilaterally. Tooth eruption consistent with age. Normal trabeculation pattern appreciated. -Multiple missing teeth - no evidence of odontogenic source of pain, or cysts of premaxilla. Assessment/Plan: Summer Dow is a 74 y.o. female with PMH significant for breast cancer, Afib, type 2 diabetes, stroke who presents for evaluation of pain associated with teeth #6 and 9. Panoramic radiograph and CT imaging showed no evidence of cystic lesions of pre maxilla associated with area of concern. Examination of fixed partial denture revealed significant area of overhanging with possible tissue impingement or food trapping which may be causing the patient's symptoms. Patient was informed that she should seek further evaluation of restorative work by [facility]. Patient indicated that she understood, and ambulatory referral to [facility] was placed. -f/u LUCI Ramirez, DMD [1] Past Medical History: Diagnosis Date Hx antineoplastic chemo 2003 Malignant neoplasm of unspecified site of unspecified female breast 2004 Malignant neoplasm of right breast Other specified health status Does not drink alcohol Other specified health status Does not use illicit drugs Other specified health status Non-smoker Personal history of irradiation 2004 right breast cancer [2] Past Surgical History: Procedure Laterality Date BREAST LUMPECTOMY Right 2004 Lumpectomy of right breast OTHER SURGICAL HISTORY N/A Right hip arthroscopy from [facility] TOTAL ABDOMINAL HYSTERECTOMY W/ BILATERAL SALPINGOOPHORECTOMY N/A Total abdominal hysterectomy and bilateral salpingo-oophorectomy ([facility]-BSO) from [facility] TUBAL LIGATION N/A Tubal ligation from [facility] [3] Current Outpatient Medications on File Prior to Visit Medication Sig Dispense Refill Dilt-XR 120 MG 24 hr capsule omeprazole (PriLOSEC) [address] capsule 1 cap(s) orally twice daily PARoxetine (Paxil) 20 MG tablet psyllium (Metamucil Smooth Texture) 58.6 % powder 1 (one) time each day at the same time. Xarelto 20 MG tablet No current facility-administered medications on file prior to visit. [4] Allergies Allergen Reactions Codeine Nausea, Other - please document in the comment field and Vomiting Upset stomach [5] Family History Problem Relation Name Age of Onset Breast cancer Cousin 56 Family history of malignant neoplasm of breast Lung cancer Mother Prostate cancer Brother Cosigned by Greg Ku DDS at 12/31/2024 8:02 AM EDT Associated attestation - Greg Ku DDS - 12/31/2024 8:02 AM EDT I saw and evaluated the patient in conjunction with the resident and performed gil portions of the history and exam. The resident's note reflects the services I personally performed and the decisionsmade by me. I agree with the radiographic interpretation. * Progress Notes - Joshua Ramirez DMD - 12/27/2024 1:00 PM EDT Images from the original note were not included. Oral & Maxillofacial Surgery Evaluation CC: I have a burning sensation by the gums of my front teeth HPI: Summer Dow is a 74 y.o. female with PMH significant for breast cancer, Afib, type 2 diabetes,stroke who presents for evaluation of pain associated with teeth #6 and 9. Patient reports pain of over 1 year duration, waxing and waning and burning in nature. Patient reports pain has been presentsince restorative work was completed on the aforementioned teeth, and she has been to multiple dentists for evaluation. Review of Systems: A 14-point review of systems was performed and is negative except as noted in HPI. PAST MEDICAL HISTORY: Past Medical History Pertinent Negatives[1] PAST SURGICAL HISTORY: Surgical History[2] Medications: Medications Ordered Prior to Encounter[3] Allergies: Allergies[4] Social History: Smoking: denies Alcohol: denies Illicit drugs: denies Family History: Family History[5] OBJECTIVE: Vitals: 12/27/24 1303 BP: 135/71 Pulse: 68 Temp: 37.2 ??C (98.9 ??F) SpO2: 97% Focused PE: Gen: NAD. Head/Face: NCAT, no facial swellings. Oral: SIDRA: 30 mm. Tongue FROM, FOM soft. Fair dentition. Fair [place]. No lesions or ulcerations. Oral soft tissues appear normal. Periodontal probe around margins of prosthodontics work on teeth #6 and #9 revealed significant overhang with likely tissue impingement. Neck: Soft, supple. Trachea midline. No masses/goiter. No LAD. CV: well perfused Pulm: Non-labored breathing on room air Neuro: AA&Ox3 Radiographic Findings Film Ordered: Panoramic and CBCT Date Ordered: 12/23/2024 Radiographic Indication: pain of unclear origin, and suspicion for cyst of maxilla Radiographic Interpretation/Findings: Condyles round & posterior to articular eminence bilaterally. Sinuses clear & symmetrical bilaterally. Tooth eruption consistent with age. Normal trabeculation pattern appreciated. -Multiple missing teeth - no evidence of odontogenic source of pain, or cysts of premaxilla. Film Ordered: LFOV CBCT Date Ordered: 12/23/2024 Radiographic Indication: pain of unclear origin, and suspicion for cyst of maxilla with no evidenceon panoramic indicating a need for 3D imaging. Radiographic Interpretation/Findings: - no evidence of odontogenic source of pain, or cysts of premaxilla. Assessment/Plan: Summer Dow is a 74 y.o. female with PMH significant for breast cancer, Afib, type 2 diabetes, stroke who presents for evaluation of pain associated with teeth #6 and 9. Panoramic radiograph and CT imaging showed no evidence of cystic lesions of pre maxilla associated with area of concern. Examination of fixed partial denture revealed significant area of overhanging with possible tissue impingement or food trapping which may be causing the patient's symptoms. Patient was informed that she should seek further evaluation of restorative work by [facility]. Patient indicated that she understood, and ambulatory referral to [facility] was placed. -f/u PRN Joshua Ramirez DMD [1] Past Medical History: Diagnosis Date Hx antineoplastic chemo 2004 Malignant neoplasm of unspecified site of unspecified female breast 2004 Malignant neoplasm of right breast Other specified health status Does not drink alcohol Other specified health status Does not use illicit drugs Other specified health status Non-smoker Personal history of irradiation 2004 right breast cancer [2] Past Surgical History: Procedure Laterality Date BREAST LUMPECTOMY Right 2004 Lumpectomy of right breast OTHER SURGICAL HISTORY N/A Right hip arthroscopy from [facility] TOTAL ABDOMINAL HYSTERECTOMY W/ BILATERAL SALPINGOOPHORECTOMY N/A Total abdominal hysterectomy and bilateral salpingo-oophorectomy (WENDY-BSO) from [facility] TUBAL LIGATION N/A Tubal ligation from [facility] [3] Current Outpatient Medications on File Prior to Visit Medication Sig Dispense Refill Dilt-XR 120 MG 24 hr capsule omeprazole (PriLOSEC) [address] capsule 1 cap(s) orally twice daily PARoxetine (Paxil) 20 MG tablet psyllium (Metamucil Smooth Texture) 58.6 % powder 1 (one) time each day at the same time. Xarelto 20 MG tablet No current facility-administered medications on file prior to visit. [4] Allergies Allergen Reactions Codeine Nausea, Other - please document in the comment field and Vomiting Upset stomach [5] Family History Problem Relation Name Age of Onset Breast cancer Cousin 56 Family history of malignant neoplasm of breast Lung cancer Mother Prostate cancer Brother Cosigned by Greg Ku DDS at 01/03/2025 8:35 AM EDT Associated attestation - Greg Ku DDS - 01/03/2025 8:35 AM EDT I saw and evaluated the patient in conjunction with the resident and performed gil portions of the history and exam. The resident's note reflects the services I personally performed and the decisionsmade by me. I agree with the radiographic interpretation. documented in this encounter Plan of Treatment Upcoming Encounters Date Type Department Care Team (Late st Contact Info) Description 04/09/2025 12:00 PM EST Appointment [facility] [address] [place] [address] 04/09/2025 1:00 PM EST Office Visit [facility] [address] [facility]nd [place] [address] Nelsy Ureña, EARLY CHILDHOOD ASSISTANT [address] [facility] [address] [place] [address] Scheduled Referrals Name Type Priority Associated Diagnoses Order Schedule Ambulatory referral to Dentistry Outpatient Referral Routine Pain Expected: 12/27/2024 (Approximate), Expires: 06/30/2026 documented as of this encounter Visit Diagnoses Diagnosis Pain- Primary Generalized pain documented in this encounter Additional Health Concerns Assessment Noted Time PHQ-9 Depression Total Score: 0 10/03/19 2:09 PM EDT A fall risk assessment has been complete d for the patient 2024 2:10 PM EDT documented as of this encounter Care Teams Slurry Tank Tender Relationship Specialty Start Date End Date Manny Bauer MD [address] [place] [address] PCP - General 10/17/20 documented as of this encounter
--- OUTSIDE RECORDS SUMMARY | 2025-01-15 11:16 | XMS_ITS | Encounter Summary ---
Author Organization Healthcare Address [address] [place] [address] Care Team Providers Care Business Lawyer Name Role Phone Manny Bauer MD Primary Care Provider [phone] Encounter Details Date Type Department Care Team (Latest Contact Info) Description 12/27/2024 Travel Social History Tobacco Use Types Packs/Day Years [...] on file documented as of this encounter Plan of Treatment Upcoming Encounters Date Type Department Care Team (Late st Contact Info) Description 04/09/2025 12:00 PM EST Appointment [facility] [place] [address] [address] [facility] [address] [place] [address] 04/09/2025 1:00 PM EST Office Visit [facility] [address] [facility] [place] [address] Nelsy Ureña, [employer] [address] [facility] [address] [address] documented as of this encounter Visit Diagnoses Not on filedocumented in this encounter Additional Health Concerns Assessment Noted Time PHQ-9 Depression Total Score: 0 10/03/19 25 2:09 PM EDT A fall risk assessment has been complete d for the patient 2024 2:10 PM EDT documented as of this encounter Care Teams Business Lawyer Relationship Specialty Start Date End Date Manny Bauer MD [address] [place] [address] PCP - General 10/17/20 documented as of this encounter
--- OUTSIDE RECORDS SUMMARY | 2025-01-15 11:16 | XMS_ITS | Encounter Summary ---
Author Organization Healthcare Address [address] 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 [facility] [address] [place] [address] [address] [place] [address] Dental, Surgeon, [address] [place], [place] [id number] Social History Tobacco Use Types Packs/Day Years [...] [facility] [place] [address] [address] [facility] [address] [place] [address] 04/09/2025 1:00 PM EST Office Visit [facility] [address] [facility] [place] [address] Nelsy Ureña, AUTOMOBILE BODY REPAIRER [address] [facility] [address] [place] [address] documented as of this encounter Visit Diagnoses Not on filedocumented in this encounter Additional Health Concerns Assessment Noted Time PHQ-9 Depression Total Score: 0 10/03/19 25 2:09 PM EDT A fall risk assessment has been complete d for the patient 2024 2:10 PM EDT documented as of this encounter Care Teams Genetic Technologist Relationship Specialty Start Date End Date Manny Bauer MD [address] [place] [address] PCP - General 10/17/20 documented as of this encounter
--- OUTSIDE RECORDS SUMMARY | 2025-01-15 11:16 | XMS_ITS | Clinical Summary ---
Author Organization Healthcare Address [address] [place] [address] Care Team Providers Care Transformer Builder Name Role Phone Manny Bauer MD Primary Care Provider [phone] Allergies Active Allergy Reactions Criticality Noted Date Comments Codeine Nausea,Other - pleas e document in the comment field,Vomiting Low 01/04/2019 Upset stomach Medications Xarelto 20 MG tablet 03/10/2021 Active PARoxetine (Paxil) 20 MG tablet 03/09/2021 Active Dilt-XR 120 MG 24 hr capsule 03/16/2023 Activ e psyllium (Metamucil Smooth Texture) 58.6 % powder 1 (one) time each day at the same time. 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 [facility] [address] [facility] [address] [place] [address] Dental, Surgeon, from Last 3 Months Family History Medical History Relation Name Comments Prostate cancer Brother Breast cancer Cousin Family history of malignant neoplasm of breast Lung cancer Mother Relation Name Status Comments Brother Cousin Mother Social History Tobacco Use Types Packs/Day Years Used Date Smoking Tobacco: Never Smokeless Tobacco: Never Tobacco Cessation:Counseling Given: Not Answered PHQ-2 Answer Date Recorded Patient Health Questionnaire-2 Score 0 2024 PHQ-9 Answer Date Recorded Patient Health Questionnaire-9 Score 0 2024 Comments No Sex and Gender Information Value Date Recorded Sex Assigned at Not on file Legal Sex Female 8:22 PM EDT Gender Identity Not on file Sexual Orientation Not on file Last Filed Vital Signs Vital Sign Reading Time Taken Comments Blood Pressure 135/71 12/27/2024 1:03 PM EDT Pulse 68 12/27/2024 1:03 PM EDT Temperature 37.2 C (98.9 F) 12/27/2024 1:03 PM EDT Respiratory Rate 16 03/11/2022 12:5 4 PM EDT Oxygen Saturation 97% 12/27/2024 1:03 PM EDT Inhaled Oxygen Concentration - - Weight 56.1 kg (123 lb 10.9 oz) 12/27/2024 1:03 PM EDT Height 160 cm (5' 3 ) 12/27/2024 1:03 PM EDT Body Mass Index 21.91 12/27/2024 1:03 PM EDT Plan of Treatment Upcoming Encounters Date Type Department Care Team (Late st Contact Info) Description 04/09/2025 12:00 PM EST Appointment [facility] [place] [facility] [place] [address] [address] [place] [address] 04/09/2025 1:00 PM EST Office Visit [facility] [address] [facility], [address]nd [place] [address] Nelsy Ureña, LAND AGENT [address] [facility] [facility] [address] [place] [address] Health Maintenance Due Date Last Done Comments Dental Oral Exam 1948 Dental Prophylaxis 1948 Dental X-Ray: Bitewings 1948 Dental X-Ray: Full Mouth 1948 [facility]-Bone Density Scan 1948 [facility]-Hepatitis C Screening 1948 [facility]-Medicare Annual Wellness (AWV) 1948 [facility]-/Child/Adol SDOH Screenings 1948 [facility]- SDOH Screenings 1966 [facility]-Adult SDOH Screenings 1966 [facility]-Zoster Vaccines (1 of 2) 10/03/1967 [facility]-Pneumococcal Vaccine: 50+ Years (2 of 2 - PPSV23) 10/11/2017 08/16/2017 [facility]-RSV Vaccine: 60+ Years or (1 - 1-dose 75+ series) 10/03/2023 [facility]-BADVO-62 Vaccine ( - season) 2024 02/27/2022, 12/18/2021, 06/19/2021, Additional history exists [facility]-Influenza Vaccine (#1) 02/04/202503/20, 03/05/2023, 02/27/2022, Additional history exists [facility]-Depression Screening 2025 2024, 09/05 [facility]-DTaP,Tdap,and Td Vaccines (2 - Td or Tdap) 12/02/2029 12/03/2019 [facility]-Hepatitis A Vaccines Aged Out 12/23/2008 No longer eligible based on patient's age to complete this topic [facility]-Breast Cancer Screening Discontinued 04/03/2024, 03/30/2023, 03/11/2022, Additional history exists HPV Vaccines Aged Out No longer eligi ble based on patient's age to complete this topic [facility]-HIB Vaccines Aged Out No longer e ligible based on patient's age to complete this topic [facility]-IPV Vaccines Aged Out No longer e ligible based on patient's age to complete this topic [facility]-Rotavirus Vaccines Aged Out No lo nger eligible based on patient's age to complete this topic Procedures Procedure Name Priority Date/Time Associated Diagnosis Comments MAMMOGRAPHY BREAST SCREENING TOMOSYNTHESIS BILATERAL Routine 04/03/2024 12:19 PM EDT Encounter for screening mammogram for malignant neoplasm of breast Malignant neoplasm of overlapping sites of right breast in female, estrogen receptor negative (CMS/HCC) from Last 3 Months or Most Recently Relevant to Health Maintenance Results * (ABNORMAL) Mammography Breast Screening Tomosynthesis Bilateral (04/03/2024 12:19 PM EDT) Anatomical Region Laterality Modality Breast Bilateral Mammography Impressions 04/03/2024 1:12 PM EDT Findings indicate additional imaging studies of the right breast are required for a complete evaluation. BI-RADS CATEGORY: Overall: 0 - Incomplete: Needs Additional Imaging Evaluation RECOMMENDATION: - Additional Imaging Diagnostic Mammogram with Possible Ultrasound. Patient Lifetime Risk Score of Breast Malignancy: A risk score has not been calculated for this patient. This risk assessment is calculated using the Sherrill Risk Assessment model which may underestimate the lifetime risk of breast malignancy. COMMUNICATION: Computer-aided detection (CAD) and tomosynthesis were utilized by the radiologist in the interpretation of this examination. The results and recommendations will be sent to the patient in a printed lay language version of the imaging report. Narrative 04/03/2024 1:12 PM EDT EXAM: Mammography Breast Screening with Tomosynthesis REASON FOR EXAM: Screening Mammogram HISTORY: Patient is 73 y.o. Family medical history includes breast cancer in cousin (age of onset: 56 - Family history of malignant neoplasm of breast). Hormone history includes control (1 year) and hormone replacement therapy (1 year). Surgical and procedural history include right lumpectomy, 2003 (Lumpectomy of right breast); hysterectomy; oophorectomy (Total abdominal hysterectomy and bilateral salpingo-oophorectomy (WENDY-BSO) from [facility]); right breast surgery, 2003 (Lumpectomy of right breast); and right breast lumpectomy, 2003 (Lumpectomy of right breast). Medical history includes breast cancer; radiation therapy, 2003 (right breast cancer); and chemotherapy, 2003. COMPARISON STUDIES: Compared to: 02/24/2018 Mammography Breast Diagnostic Tomosynthesis Bilateral at [facility] 02/28/2019 Mammography Breast Diagnostic Tomosynthesis Bilateral at [facility] 03/05/2020 Mammography Breast Diagnostic Tomosynthesis Bilateral at [facility] 03/10/2021 Mammography Breast Screening Tomosynthesis Bilateral at [facility] 03/11/2022 Mammography Breast Screening Tomosynthesis Bilateral at [facility] 03/30/2023 Mammography Breast Screening Tomosynthesis Bilateral at [facility] BREAST COMPOSITION: There are scattered areas of fibroglandular density. FINDINGS: RIGHT: Finding 1, possible asymmetry, 5mm in the lateral region of the breast with a posterior depth 4.5 cm from the nipple. Referenced Cal slice(s) CC#16/53 Post lumpectomy changes in the central right breast. LEFT: No suspicious masses, microcalcifications or areas of architectural distortion are seen. Nelsy Ureña APRN IMG BI PROCEDURES Final R esult from Last 3 Months or Most Recently Relevant to Health Maintenance Insurance MEDICARE OTHER [facility] Care Teams Transformer Builder Relationship Specialty Start Date End Date Manny Bauer MD [address] [place] [id number] PCP - General 10/17/20
--- OUTSIDE RECORDS SUMMARY | 2025-01-15 11:17 | XMS_ITS | Patient Health Record ---
Author Organization [facility] JOSH Address [address] [place] [address] Care Team Providers Care Chief Knowledge Officer Name Role Phone Manny Bauer Primary Care Provider [phone] Melinda Melo Unavailable [phone] Migration, Provider Unavailable Unavailable Allergies Allergen (clinical drug ingredient) Drug/Non Drug Allergy documented on EMR Reaction Allergy Type Onset Date Status codeine Codeine stomach upset Drug Allergy Act eyad Results Component Value Reference Range Notes VITAMIN B12/FOLATE, SERUM PA VU (0637) Reviewed date:03/23/2024 11:39:06 AM Interpretation: Performing Lab:[facility] [address] [employer] [id number], [employer] [id number] Wilmer Shen Notes/Report: FASTING: YES FASTING:YES NON-FASTING; NON-FASTING; NON-FASTING; NON-FASTING; NON-FAST VITAMIN B12 726 423-0270 pg/mL FOLATE, SERUM 16.7 Reference Range Low: <3.4 Borderline: 3.4-5.4 Normal: >5.4 HEMOGLOBIN A1c (496) Reviewed date:03/23/2024 11:39:06 AM Interpretation: Performing Lab:[facility] [address], [facility] HospitalWgntUX[address] Wilmer Shen Notes/Report: NON-FASTING; NON-FASTING; NON-FASTING; NON-FASTING; NON-FAST FASTING:YES FASTING: YES HEMOGLOBIN A1c 6.4 <5.7 % of total Hgb For someone without known diabetes, a hemoglobin A1c value between 5.7% and 6.4% is consistent with prediabetes and should be confirmed with a follow-up test. For someone with known diabetes, a value <7% indicates that their diabetes is well controlled. A1c targets should be individualized based on duration of diabetes, age, comorbid conditions, and other considerations. This assay result is consistent with an increased risk of diabetes. Currently, no consensus exists regarding use of hemoglobin A1c for diagnosis of diabetes for children. CBC (INCLUDES DIFF/PLT) (639 9) Reviewed date:03/23/2024 11:39:06 AM Interpretation: Performing Lab:[facility], [employer] [address], [email or web address] Wilmer Shen Notes/Report: NON-FASTING; NON-FASTING; NON-FASTING; NON-FASTING; NON-FAST FASTING:YES FASTING: YES WHITE BLOOD CELL COUNT 7.0 3.8-10.8 Thousand/ uL RED BLOOD CELL COUNT 3.89 3.80-5.10 Million/uL HEMOGLOBIN 11.9 11.7-15.5 g/dL HEMATOCRIT 35.9 35.0-45.0 % MCV 92.3 80.0-100.0 fL MCH 30.6 27.0-33.0 pg MCHC 33.1 32.0-36.0 g/dL For adults, a slight decrease in the calculated MCHC value (in the range of 30 to 32 g/dL) is most likely not clinically significant; however, it should be interpreted with caution in correlation with other red cell parameters and the patient's clinical condition. RDW 12.9 11.0-15.0 % PLATELET COUNT 207 140-400 Thousand/uL MPV 11.5 7.5-12.5 fL ABSOLUTE NEUTROPHILS 4872 [phone] cells/uL ABSOLUTE LYMPHOCYTES 3298 066-6934 cells/uL ABSOLUTE MONOCYTES 399 200-950 cells/uL ABSOLUTE EOSINOPHILS 161 15-500 cells/uL ABSOLUTE BASOPHILS 42 0-200 cells/uL NEUTROPHILS 69.6 LYMPHOCYTES 21.8 MONOCYTES 5.7 EOSINOPHILS 2.3 BASOPHILS 0.6 COMPREHENSIVE METABOLIC PANE L (47148) Reviewed date:03/23/2024 11:39:06 AM Interpretation: Performing Lab:[facility], [employer] [address], [email or web address] Wilmer Shen Notes/Report: NON-FASTING; NON-FASTING; NON-FASTING; NON-FASTING; NON-FAST FASTING:YES FASTING: YES GLUCOSE 103 65-99 mg/dL Fasting reference interval For someone without known diabetes, a glucose value between 100 and 125 mg/dL is consistent with prediabetes and should be confirmed with a follow-up test. UREA NITROGEN (BUN) 11 7-25 mg/dL CREATININE 0.67 0.60-1.00 mg/dL EGFR 91 > OR = 60 mL/min/1.73m2 BUN/CREATININE RATIO SEE NOTE: 6-22 (calc) Not Reported: BUN and Creatinine are within reference range. SODIUM 143 135-146 mmol/L POTASSIUM 3.7 3.5-5.3 mmol/L CHLORIDE 103 98-110 mmol/L CARBON DIOXIDE 28 20-32 mmol/L CALCIUM 9.6 8.6-10.4 mg/dL PROTEIN, TOTAL 7.1 6.1-8.1 g/dL ALBUMIN 4.5 3.6-5.1 g/dL GLOBULIN 2.6 1.9-3.7 g/dL (calc) ALBUMIN/GLOBULIN RATIO 1.7 1.0-2.5 (calc) BILIRUBIN, TOTAL 0.3 0.2-1.2 mg/dL ALKALINE PHOSPHATASE 138 37-153 U/L AST 14 10-35 U/L ALT 10 6-29 U/L LIPID PANEL, STANDARD (7600) Reviewed date:03/23/2024 11:39:06 AM Interpretation: Performing Lab:CB, [facility] [address] [facility], [facility] HospitalXnykMD[address] Wilmer Shen Notes/Report: NON-FASTING; NON-FASTING; NON-FASTING; NON-FASTING; NON-FAST FASTING:YES FASTING: YES CHOLESTEROL, TOTAL 173 <200 mg/dL HDL CHOLESTEROL 69 > OR = 50 mg/dL TRIGLYCERIDES 88 <150 mg/dL LDL-CHOLESTEROL 86 Reference range: <100 Desirable range <100 mg/dL for primary prevention; <70 mg/dL for patients with CHD or diabetic patients with > or = 2 CHD risk factors. LDL-C is now calculated using the Carol calculation, which is a validated novel method providing better accuracy than the Friedewald equation in the estimation of LDL-C. Mars SENA et al. ERROL. 2013;310(19): 3981-8446 (http://education.[employer]/faq/SBY981) CHOL/HDLC RATIO 2.5 <5.0 (calc) NON HDL CHOLESTEROL 104 <130 mg/dL (calc) For patients with diabetes plus 1 major ASCVD risk factor, treating to a non-HDL-C goal of <100 mg/dL (LDL-C of <70 mg/dL) is considered a therapeutic option. Microalbumin (In-House) Reviewed date:03/21/2024 08:35:26 AM Interpretation:Abnormal Performing Lab: Notes/Report: Abnormal ALB 150mg CRE 200mg A:C 30-300mg Urinalysis Reviewed date:06/19/2024 01:37:43 PM Interpretation: Performing Lab: Notes/Report: Color/Clarity yellow Leuk neg Nitrite neg Urobili 0.2 Protein neg pH 5.0 Blood trace-intact Sp. Gr. >=1.030 Ketone neg Bili neg Glucose >=1000mg BASIC METABOLIC PANEL (34060 ) Reviewed date:06/21/2024 10:13:43 AM Interpretation: Performing Lab:[facility] [employer] [id number] [employer], [employer][id number] Wilmer Shen Notes/Report: NON-FASTING; NON-FASTING GLUCOSE 89 65-99 mg/dL Fasting reference interval UREA NITROGEN (BUN) 11 7-25 mg/dL CREATININE 0.65 0.60-1.00 mg/dL EGFR 92 > OR = 60 mL/min/1.73m2 BUN/CREATININE RATIO SEE NOTE: 6-22 (calc) Not Reported: BUN and Creatinine are within reference range. SODIUM 143 135-146 mmol/L POTASSIUM 4.5 3.5-5.3 mmol/L CHLORIDE 103 98-110 mmol/L CARBON DIOXIDE 30 20-32 mmol/L CALCIUM 9.5 8.6-10.4 mg/dL HEMOGLOBIN A1c (496) Reviewed date:06/21/2024 10:13:43 AM Interpretation: Performing Lab:[facility] [employer] [address], [employer][id number] Wilmer Shen Notes/Report: NON-FASTING; NON-FASTING HEMOGLOBIN A1c 6.3 <5.7 % of total Hgb For someone without known diabetes, a hemoglobin A1c value between 5.7% and 6.4% is consistent with prediabetes and should be confirmed with a follow-up test. For someone with known diabetes, a value <7% indicates that their diabetes is well controlled. A1c targets should be individualized based on duration of diabetes, age, comorbid conditions, and other considerations. This assay result is consistent with an increased risk of diabetes. Currently, no consensus exists regarding use of hemoglobin A1c for diagnosis of diabetes for children. Medications Medication SIG (Take, Route, Frequency, Duration) Notes Start Date End Date Status Triamcinolone Acetonide 0.1 % 1 juni applied topically 2 times a day; Duration: 7 days 08/01/2024 Active Triamcinolone Acetonide 0.5 % 1 application Externally Twice a day; Duration: 30 days 09/11/2024 Active PARoxetine HCl 20 MG TAKE 1 TABLET BY MOUTH EVERY DAY; Duration: 90 Active Xarelto 20 MG 1 tab(s) orally once a day (in the evening); Duration: 90 days Active C-PAP MACHINE SETTINGS ARE FROM 10-14 DIRECTED *Please review for potential replacement for e-prescription and drug interaction check* 04/25/2019 Active Metamucil Smooth Texture 58.6 % as directed orally once a day Active Dilt-XR 120 MG TAKE 1 CAPSULE BY MOUTH ONCE DAILY; Duration: 30 Active KONSYL 1 TABLESPOON ORALLY DAILY PRN; Duration: 90 DAYS *Please review for potential replacement for e-prescription and drug interaction check* Active C-PAP MASK AND SUPPLIES DIRECTED DX: LINDA; Duration: 30 DAYS *Please review for potential replacement for e-prescription and drug interaction check* 04/25/2019 Active Omeprazole 40 MG 1 cap(s) orally twice daily 12/13/2023 Active C-PAP MASK AND SUPPLIES DIRECTED; Duration: 30 DAYS *Please review for potential replacement for e-prescription and drug interaction check* 09/23/2020 Active Immunizations Vaccine Route Administration Date Status Comme nts Fluzone High Dose IM Intramuscular 04/02/2020 Administered Fluzone High Dose IM Intramuscular 03/17/2021 Administered Fluzone High Dose IM Intramuscular 03/20/2024 Administered Prevnar PCV-13 (Pneumococcal conjugate 13) IM Intramuscular 08/16/2017 Administered Problems Problem Type SNOMED Code ICD Code Onset Dates Problem Status W/U Status Risk Notes Problem Generalized anxiety disorder (93015842) Generalized anxiety disorder (F41.1) Active confirmed Problem Paroxysmal atrial fibrillation (853725584) Paroxysmal atrial fibrillation (I48.0) Active confirmed Problem Chronic rhinitis (90483397) Chronic rhinitis (J31.0) Active confirmed Problem Localized, primary osteoarthritis of the hand (629805495) Primary osteoarthritis, right hand (M19.041) Active confirmed Problem Vitamin B12 deficiency (019192782) Vitamin B12 deficiency (E53.8) Active confirmed Problem Vitamin D deficiency (95402551) Vitamin D deficiency (E55.9) Active confirmed Problem Type II diabetes mellitus without complication (940204016) Diabetes mellitus type 2, noninsulin dependent (E11.9) Active confirmed Problem Mild cognitive impairment (873727258) Mild cognitive impairment (G31.84) Active confirmed Problem Essential hypertension (16346742) Hypertension, essential (I10) Active confirmed Problem Psoriasis (8657981) Psoriasis (L40.9) Active co nfirmed Problem Idiopathic peripheral neuropathy (34389341) Idiopathic peripheral neuropathy (G60.9) Active confirmed Problem Gastroesophageal reflux disease (346779587) Gastroesophageal reflux disease, esophagitis presence not specified (K21.9) Active confirmed Problem Chronic fatigue syndrome (51887996) Chronic fatigue (R53.82) Active confirmed Problem Microalbuminuria (481647557) Microalbuminuria (R80.9) Active confirmed Problem Obstructive sleep apnea syndrome (55960665) LINDA (obstructive sleep apnea) (G47.33) Active confirmed Problem Sacroiliitis (48046280) Sacroiliitis (M46.1) Active confirmed Problem Recurrent major depression in full remission (19465651) Recurrent major depressive disorder, in full remission (F33.42) Active confirmed Problem Vitamin B12 deficiency (804137992) History of non anemic vitamin B12 deficiency (Z86.39) Active confirmed Problem Osteopenia (disorder) (509834133) Osteopenia determined by x-ray (M85.80) Active confirmed Problem Microscopic hematuria (806085313) Microscopic hematuria (R31.29) Active confirmed Problem Malignant neoplasm of female breast (521205800) Malignant neoplasm of breast (female), unspecified site (C50.919) Active confirmed Problem Atrophic gastritis (39376904) Atrophic gastritis without hemorrhage (K29.40) Active confirmed Problem Impairment of balance (798855922) Balance problem (R26.89) Active confirmed Problem Cerebral infarction (475962525) Occipital stroke (I63.9) Active confirmed Problem Sequela of cardioembolic stroke (87334509273743) Sequela of cardioembolic stroke (I69.30) Active confirmed Problem Gastroesophageal reflux disease with esophagitis (disorder) (883890987) Gastroesophageal reflux disease with esophagitis without hemorrhage (K21.00) Active confirmed Problem Peripheral circulatory disorder associated with diabetes mellitus (891929754) 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) Active confirmed Vital Signs Heart Rate 72 /min 01/15/2025 Temperature 97.9 degrees Fahrenheit 01/15/2025 Blood pressure diastolic 72 mm Hg 01/15/2025 Height 65 in 01/15/2025 Blood pressure systolic 110 mm Hg 01/15/2025 Weight 121.5 lbs 01/15/2025 BMI 20.22 kg/m2 01/15/2025 Encounters Encounter Location Date Provider Diagnosis [facility] [address] [place] [address] 09/08/2024 Provider Migration Vulvar dermatitis L30.9 [facility] [address] [address] 01/15/2025 Manny Bauer Sacro-iliac pain M53 .3 ; Right hip pain M25.551 ; Paroxysmal atrial fibrillation I48.0 ; Vitamin B12 deficiency E53.8 ; Vitamin D deficiency E55.9 ; Type 2 diabetes mellitus with vascular disease E11.59 and Routine medical exam Z00.00 [facility] [address] [address] 03/20/2024 Manny Bauer Type 2 diabetes diamond itus with vascular disease E11.59 ; History of non anemic vitamin B12 deficiency Z86.39 ; Occipital stroke I63.9 ; Paroxysmal atrial fibrillation I48.0 and Immunization(s) administered Z23 [facility] [address] [address] 05/01/2024 Manny Bauer Microalbuminuria R80 .9 ; Diabetes mellitus type 2, noninsulin dependent E11.9 and Underweight R63.[address] [address] 06/19/2024 Manny Bauer Diabetes mellitus ty pe 2, noninsulin dependent E11.9 ; Dysuria R30.0 ; Microalbuminuria R80.9 and Vaginal yeast infection B37.31 [facility] [address] [address] 08/01/2024 Melinda Melo Vulvar dermatitis L3 0.9 ; Weight loss R63.4 ; Diabetes mellitus type 2, noninsulin dependent E11.9 and Microalbuminuria R80.9 [facility] [address] [address] 09/11/2024 Manny Bauer Psoriasis L40.9 ; Paroxysmal atrial fibrillation I48.0 ; Type 2 diabetes mellitus with vascular disease E11.59 and Occipital stroke I63.9 Assessments Encounter Date Diagnosis (ICD Code) Assessment Notes Treatment Notes Treatment Clinical Notes Section Notes 03/20/2024 History of non anemic vitamin B12 deficiency (ICD-10 - Z86.39) Patient has stable fatigue symptoms. Check labs. Please note I will review all labs personally 03/20/2024 Type 2 diabetes mellitus with vascular disease (ICD-10 - E11.59) Summer has had an A1c of 6.5%. I did not start medications given her otherwise good metabolic status. However, today microalbumin screening reveals elevated microalbumin. Given this issue we will initiate SGLT2 inhibitor. Farxiga samples given and coupon card given. Discussed side effects. I will see her in 6 weeks to see how she is doing of the medication. Discussed hydration status 05/01/2024 Diabetes mellitus type 2, noninsulin dependent (ICD-10 - E11.9) Patient is a well controlled diabetic that is not on insulin. Her urine last month was positive for microalbumin, she was started on Farxiga and is doing well. Will recheck at her next appointment after the new year. 05/01/2024 Microalbuminuria (ICD-10 - R80.9) Patient presents after microalbumin found in the urine. She was started on Farxiga 10mg and is doing well on the medication. No side effects reported. 06/19/2024 Dysuria (ICD-10 - R30.0) 06/19/2024 Diabetes mellitus type 2, noninsulin dependent (ICD-10 - E11.9) Chronic, controlled. A1c 6.4% most recently, repeat pending today. Will personally review labs. Continue farxiga 10 mg daily. Consider changing therapy if there is cocnern for recurrent infxns. 08/01/2024 Weight loss (ICD-10 - R63.4) This may be secondary to SGLT2I as well. Rec stop treatment and monitor weight/appetite. colonoscopy and mammogram up to date (mamm at , FU next month). If symptoms not improved will recheck TSH and additional workup as indicated 08/01/2024 Vulvar dermatitis (ICD-10 - L30.9) vulvuar dermatitis suspected due to farxiga as well as atrophic postmenopausal changes. Rec trial of steroid cream and estrogen cream and f/u in 2 weeks to see if signs of improvement. Stopping farxiga. Refer to SUPERVISOR [facility]EARCH KENNEL if no relief or additional symptoms develop. 09/08/2024 Vulvar dermatitis (ICD-10 - L30.9) 09/11/2024 Paroxysmal atrial fibrillation (ICD-10 - I48.0) Good rate control, remains on DOAC therapy, no evidence of bleeding 09/11/2024 Psoriasis (ICD-10 - L40.9) Patches appear to be psoriasis, positive Auspitz sign. Will send in presciption for triamcinolone cream. Use twice daily on inflamed areas for 10 days. Use as needed after 10 days. 01/15/2025 Right hip pain (ICD-10 - M25.551) 01/15/2025 Sacro-iliac pain (ICD-10 - M53.3) 09/11/2024 Type 2 diabetes mellitus with vascular disease (ICD-10 - E11.59) Doing better off of Farxiga with good weight gain. Follow-up in 3 months with A1c and BMP at that point. Will reinitiate therapy with another agent if A1c is increasing 01/15/2025 Paroxysmal atrial fibrillation (ICD-10 - I48.0) 08/01/2024 Diabetes mellitus type 2, noninsulin dependent (ICD-10 - E11.9) Stopping farxiga, will contiue to monitor HgbA1C, Last A1C: 6.5 06/19/2024 Microalbuminuria (ICD-10 - R80.9) Continue farxiga per above. Recheck annually. 05/01/2024 Underweight (ICD-10 - R63.6) Patient is slighly underweight with a BMI of 20. She has had some dental procedures done recently that have decreased her appetitie due to the pain. Counseled patient on trying to consume more protein in her diet with things like yogurt, salmon, and boost shakes. Will check her weight after the new year. 03/20/2024 Occipital stroke (ICD-10 - I63.9) No evidence of recurrence, blood pressure under good control, on appropriate anticoagulation given her history of stroke and paroxysmal A-fib. 03/20/2024 Paroxysmal atrial fibrillation (ICD-10 - I48.0) 06/19/2024 Vaginal yeast infection (ICD-10 - B37.31) Acute, improving. Suspect culprit of scant blood.Will treat with diflucan, and she will notify the office if symptoms do not improve. 08/01/2024 Microalbuminuria (ICD-10 - R80.9) mild x 2 in the past year, normal creatinine and GFR > 60. Consider low dose ARB 09/11/2024 Occipital stroke (ICD-10 - I63.9) No further recurrence, on Xarelto. 01/15/2025 Vitamin B12 deficiency (ICD-10 - E53.8) 01/15/2025 Vitamin D deficiency (ICD-10 - E55.9) 03/20/2024 Immunization(s) administered (ICD-10 - Z23) 01/15/2025 Type 2 diabetes mellitus with vascular disease (ICD-10 - E11.59) 01/15/2025 Routine medical exam (ICD-10 - Z00.00) Plan Of Treatment Pending Test Test Name Order Date N-BUN, Creatinine 01/19/2007 MRI : Lumbosacral Spine 12/05/2012 X ray : Hip and thigh, Right 01/15/2025 Colonoscopy 01/12/2012 DEXA Hip and Spine - Screening 2 Sleep Study 03/06/2019 Sleep Study 01/15/2019 MRA : Head 12/08/2018 EKG : In House 04/23/2010 EKG : In House 12/22/2016 EKG : In House 08/20/2010 Holter Monitor : Event Recorder 01/27/20 Holter Monitor : Event Recorder 01/27/20 Physical Therapy 06/13/2006 X ray : SI Joints 01/15/2025 Ultrasound : Gallbladder 03/11/2015 Holter Monitor, 48 hour 11/16/2018 H-CBC with AUTO DIFF 04/23/2010 H-IRON & TIBC 04/23/2010 H-VITAMIN B12 04/23/2010 H-FOLATE, SERUM 04/23/2010 H-FERRITIN 04/23/2010 H-CMP 04/23/2010 H-LIPID PANEL 04/23/2010 H-AMYLASE 04/23/2010 H-GUSTAVO PROFILE 06/20/2014 H-HELICOBACTER PYLORI IGG ABS 04/23/2010 H-HELICOBACTER PYLORI IGM AB 04/23/2010 C-CBC 08/10/2016 C-CMP 08/10/2016 C-LIPID PANEL 08/10/2016 C-LIPID PANEL 11/20/2013 C-ACID PHOSPHATASE 02/21/2009 C-TSH 11/20/2013 C-TSH 08/10/2016 C-VITAMIN B12 11/20/2013 C-VITAMIN D, 25-HYDROXY 11/20/2013 M-Complete Blood Count Auto Diff 025 M-Comprehensive Metabolic Panel 01/16/20 25 M-Hemoglobin A1C 01/15/2025 M-Lipid Panel 01/15/2025 M-Vitamin B12 01/15/2025 M-Vitamin B12 06/17/2020 M-Vitamin B12 01/06/2021 M-Vitamin D 25 Hydroxy 01/06/2021 M-Vitamin D 25 Hydroxy 06/17/2020 M-Vitamin D 25 Hydroxy 01/15/2025 M-Urine Culture 06/16/2022 Vitamin B12 06/10/2022 CBC With Platelet And Differential 06/10 Comprehensive Metabolic Panel (CMP) 10/2022 Hemoglobin A1C 06/10/2022 Lipid Panel 06/10/2022 TSH 06/10/2022 Vitamin D 25-Hydroxy 06/10/2022 Future Test Test Name Order Date H-HELICOBACTER PYLORI (SCREEN) 5 Insurance Providers Payer Name Payer Address Payer Phone Subscriber Number Group Number Insured Name Patient Relationship to Insured Coverage Start Date Coverage End Date [employer] [address] [address] [place] [id number] Summer Dow Self - patient is the insured [facility] 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 Mild osteoarthritis DANIEL - controlled with Paxil GERD vitamin b 12 def Colonoscopy with polyp 10/20; follow up 09/2021 had one polyp; next due in 7 years severe osteopenia on DEXA scan August occipital stroke December 2018-c arotid Dopplers normal, echocardiogram normal with no evidence of shunt/PFO Last mammogram 03/2021; has yearly jimmy walters EGD 06/28 with mild chronic gastritis, Hp ylori negative Surgical History Surgery Date(Month/Year) lumpectomy right breast hysterectomy tubal ligation right hip surgery colonoscopy 09/2021 Hospitalization History Reason Date(Month/Year) chest pain/acid reflux 12/2016 syncope 2012
--- NOTE | 2025-01-15 11:29 | XR_ITS ---
FINAL REPORT TECHNIQUE: Sacroiliac joints 3 views CLINICAL HISTORY: SI JOINT PAIN X 5 MOS COMPARISON: None FINDINGS: SACROILIAC JOINTS: 3 views of the sacroiliac joints were obtained. Mild degenerative changes are noted. There is partial sacralization of the right L5 vertebra. No acute bony abnormality is identified. Osteopenia is present. IMPRESSION: Mild degenerative changes of the sacroiliac joints without acute bony abnormality. Reviewed, Interpreted and Dictated by Zeina Mata MD Transcribed by Thu Hernandez Authenticated and . [facility]
--- NOTE | 2025-01-15 11:32 | XR_ITS ---
FINAL REPORT CLINICAL HISTORY: SACRO ILIAC PAIN/ RIGHT HIP PAIN SI JOINT PAIN X 5 MONTHS COMPARISON: None FINDINGS: RIGHT HIP 3 views of the right hip demonstrate no acute fracture or dislocation. The joint spaces demonstrate mild degenerative changes. Osteopenia is present. The visualized bony structures are well aligned. No soft tissue abnormality is seen. IMPRESSION: No acute bony abnormality. Reviewed, Interpreted and Dictated by Zeina Mata MD Transcribed by Thu Hernandez Authenticated and . [facility]
--- NOTE | 2025-01-15 11:32 | XR_ITS ---
FINAL REPORT CLINICAL HISTORY: PAIN UPPER PORTION IN HIP XRAY COMPARISON: None FINDINGS: RIGHT FEMUR: Two views show no evidence of an acute, displaced fracture or dislocation of the visualized bony architecture. The joint spaces appear normal. IMPRESSION: Unremarkable exam. Reviewed, Interpreted and Dictated by Zeina Mata MD Transcribed by Thu Hernandez Authenticated and [facility]
[2025-01-15 12:53] LABS: Hematocrit 30.3 % (37.0-47.0); Hemoglobin 10.1 g/dL (12.2-16.2); Immature Granulocytes % 0.3 %; Mean Corpuscular HGB Conc 33.3 g/dL (31.8-35.4); Mean Corpuscular Hemoglobin 28.5 pg (27.0-31.2); Mean Corpuscular Volume 85.4 fl (81-99); Nucleated Red Blood Cells % 0 %; Platelet Count 215 K/mm3 (142-424); Red Blood Count 3.55 M/mm3 (4.20-5.40); Red Cell Distribution Width-SD 39.6 fL; White Blood Count 7.1 K/mm3 (4.8-10.8)
[2025-01-15 13:36] LABS: Alanine Aminotransferase 15 U/L (12-78); Albumin Level 4.4 g/dl (3.5-5.0); Albumin/Globulin Ratio 1.9 (1.1-1.8); Alkaline Phosphatase 140 U/L (38-126); Anion Gap 11.0 mEq/L (5-15); Aspartate Amino Transferase 27 U/L (14-36); Bilirubin,Total 0.5 mg/dl (0.2-1.3); Blood Urea Nitrogen 14 mg/dl (7-17); Calcium 9.3 mg/dl (8.4-10.2); Carbon Dioxide 27 mmol/L (22.0-30.0); Chloride 104 mmol/L (98-107); Cholesterol 174 mg/dl (140-200); Creatinine,Serum 0.40 mg/dl (0.52-1.04); Estimated Glomerular Filt Rate 155 ml/min (>60); GFR (African American) 188 ML/MIN (>60); Globulin 2.3 g/dL (1.3-3.2); Glucose 87 mg/dl (74-100); HDL Cholesterol 76 mg/dl (40-60); Potassium 4.0 mmoL/L (3.5-5.1); Sodium 138 mmol/L (136-145); Total Protein,Serum 6.7 g/dl (6.3-8.2); Triglycerides 85 mg/dl (30-150)
[2025-01-15 13:53] LABS: 25-OH Vitamin D, Total 20.8 ng/mL (30-100)
[2025-01-15 14:25] LABS: Vitamin B12 304 pg/mL (239-931)
[2025-01-15 19:26] LABS: Hemoglobin A1C 6.0 % (4.0-6.0)
[2025-01-16 10:10] LABS: Iron 93 ug/dL (37-170)
[2025-01-16 10:19] LABS: Total Iron Binding Capacity 384 ug/dL (265-497)
[2025-01-16 10:45] LABS: Ferritin 10.2 ng/ml (11.1-264)
== END 2025-01-15 23:59 | disposition home or self-care (01) ==
LOC: RAD 11:14
PROVIDERS: PCP Internal Medicine Adolescent Medicine; Visit Provider Internal Medicine Adolescent Medicine
DX: M25.551 Pain in right hip (principal); M53.3 Sacrococcygeal disorders, not elsewhere classified; E11.59 Type 2 diabetes mellitus with other circulatory complications; E55.9 Vitamin D deficiency, unspecified; D64.9 Anemia, unspecified; E53.8 Deficiency of other specified B group vitamins
CPT/HCPCS: 36415; 72202; 73502; 73552; 80053; 80061; 82306; 82607; 82728; 83036; 83540; 83550; 85025

== ENCOUNTER 2025-05-14 13:15 | Day surgery (SDC) | payer MEDICARE, OTHER, SELFPAY ==
[2025-05-14 13:25] VITALS: BP 140/81; BP 143/71; PULSE 74; PULSE 80; RESP 16; RESP 18; O2SAT 97; O2SAT 99; BMI 22.3
[2025-05-14] MEDS: BUPIVACAINE 0.25% 10ML INJ 25 MG IJ (13:31)
[2025-05-14] MEDS: LIDOCAINE 1% 5ML PF VIAL 5 ML (13:31)
[2025-05-14 13:39] VITALS: BP 154/73; PULSE 90; RESP 16; O2SAT 98
--- NOTE | 2025-05-14 13:50 | EXP.PAIN.PRO ---
Procedure Date: 05/14/25 Time: 13:42 Anesthesiologist:: Jose Hardy CRNA Complications:: None Pre-procedure Diagnosis:: Right sacroiliitis Post-procedure Diagnosis:: Same Indications for Procedure:: Patient is a pleasant 74-year-old female who comes to clinic today for right sacroiliac joint injection of cortisone local anesthetic. Patient describes right low lumbar back pain as constant, dull, aching. Patient also reports right posterior hip pain. Difficulty transitioning from sitting to standing. She rates her pain 7/10. Procedure Details:: Procedure: Right sacroliliac joint injection under fluoroscopy Informed consent was obtained and the risk and benefits of the procedure were explained to the patient.~ The patient was taken to the procedure room and noninvasive monitors were placed including noninvasive blood pressure cuff and pulse oximeter.~ The patient was placed prone on the procedure table.~ The~ right hip was cleansed using Betadine as a cleansing solution.~ C-arm fluorosocpy was used to view the right SI joint.~ The skin and subcutaneous tissues were anesthetized using Lidocaine 1.5% and a 25-gauge needle.~ After this, a 22-gauge spinal needle was inserted under fluoroscopic guidance into the inferior aspect of the right SI joint.~ Omnipaque dye was injected and a good spread was seen throughout the joint.~ After this, approximately 5 mL of bupivacaine 0.25% and dexamethasone 10 mg mg was incrementally injected into the sacroiliac joint.~ The patient tolerated the procedure well with no complications.~ The patient was observed in the Pain Clinic, then discharged home neurologically intact.~ Plan and Disposition:: Patient was discharged without incident.
== END 2025-05-14 13:40 | disposition home or self-care (01) ==
LOC: SC.PAINP 13:17
PROVIDERS: PCP Internal Medicine Adolescent Medicine; Visit Provider Nurse Anesthetist, Certified Registered
DX: M46.1 Sacroiliitis, not elsewhere classified (principal); M19.90 Unspecified osteoarthritis, unspecified site; F32.A Depression, unspecified; E11.9 Type 2 diabetes mellitus without complications; K21.9 Gastro-esophageal reflux disease without esophagitis; Z98.51 Tubal ligation status; Z90.711 Acquired absence of uterus with remaining cervical stump; Z83.3 Family history of diabetes mellitus; Z88.5 Allergy status to narcotic agent; Z79.899 Other long term (current) drug therapy; Z79.82 Long term (current) use of aspirin
CPT/HCPCS: G0260; J0665; J2003